=== PATIENT | female | born 1955 | race Caucasian/White ===

== ENCOUNTER 2016-09-19 10:29 | Emergency (ER) | payer OTHER ==
[~2016-09-19] VITALS: Ht 162.6 cm; Wt 79.5 kg
[~2016-09-19 10:29] MED LIST: ACET-1138 PO; AMT50 PO; ASCO500T16 PO; ASPEC81 PO; CALC500C70 PO; CLB/200 PO; MIRT15TA3 PO; MULT-506 PO; NXM/40 PO; RXC5 PO; SERT-234 PO; SNK PO
[2016-09-19 10:38] VITALS: TEMP 36.6; Ht 162.6 cm; Wt 79.5 kg
[2016-09-19] MEDS ORDERED: SODIUM CHLORIDE 0.9% 1000ML 1,000 ML IV STA (11:11)
[2016-09-19] MEDS ORDERED: ONDANSETRON INJ 2 MG/ML 2 ML VIAL IV STA (11:11)
[2016-09-19 11:46] LABS: BASO % 0.1 %; BASO ABS # 0.01 K/uL (0-0.2); COMPLETE YES; EOS % 0.4 %; HEMATOCRIT 40.2 % (37-47); IG% 0.2 %; LYMPH ABS # 0.43 K/uL (1.2-3.4); MEAN CELL VOLUME 83.8 fL (80-100); MEAN CORPUSCULAR HEMOGLOBIN 28.1 pg (25-34); MEAN CORPUSCULAR HGB CONC 33.6 g/dl (32-36); MEAN PLATELET VOLUME 9.5 fL (7.4-10.4); MONO % 2.6 %; NEUT % 93.7 %; PLATELET COUNT 316 K/uL (130-400); WHITE BLOOD COUNT 14.37 K/uL (4.8-10.8)
[2016-09-19] MEDS ORDERED: ACETAMINOPHEN 500 MG TAB PO STA (11:56)
--- NOTE | 2016-09-19 12:00 | EMERGENCY ROOM VISIT NOTE ---
History Report prepared by Adryanibtricia: Charlotte Irene Under the Supervision of: Dr. Yariel Caro M.D. First contact with patient: 11:00 Chief Complaint: VOMITING Stated Complaint: VOMITING, DIARRHEA Nursing Triage Summary: Vomiting since 5am today. Now with diarrhea. Achy, headache. History of Present Illness The patient is a 61 year old female who presents to the Emergency Room with complaints of persistent vomiting and diarrhea that started around 0500 this morning. She also complains of diaphoresis, chills and a headache. She denies any recent sick contacts. The Zofran she was given here in the ED has provided good relief of her nausea and she has not vomited since she arrived to the ED. She reports she ate a salad, frozen fish and salcedo beans last night for dinner, but doesn't think she got food poisoning. She admits to intermittent aches in her abdomen and legs, but states "I think it's a flu-like ache". She still has both her appendix and gallbladder. Source of History: patient Onset: 0500 this morning Position: abdomen Timing: other (persistent) Modifying Factors (Relieving): anti-emetics (Zofran) Associated Symptoms: + abdominal pain, + chills, + diaphoresis, + headache Review of Systems See HPI for pertinent positives & negatives. A total of 10 systems reviewed and were otherwise negative. Past Medical & Surgical Medical Problems: (1) Arthritis (2) COPD (chronic obstructive pulmonary disease) (3) GERD (gastroesophageal reflux disease) (4) Osteoarthritis of right knee (5) Personal History, Pneumonia (Recurrent) Family History Cancer Social History Smoking Status: Former Smoker Marital Status: Housing Status: lives with family Occupation Status: employed Current/Historical Medications Scheduled Ascorbic Acid (Ascorbic Acid), 2,000 MG PO QAM Calcium/Vitamin D (Os-Gregorio 500 Plus D), 1 TAB PO DAILY Celecoxib (CeleBREX), 200 MG PO QAM Esomeprazole Magnesium (Nexium), 40 MG PO BID Multivitamin (Multivitamin), 1-2 TAB PO QPM Ondasetron Odt (Zofran Odt), 4 MG SL Q6H Scheduled PRN Amitriptyline Hcl (Elavil), 50-100 MG PO HS PRN for RN Mirtazapine (Remeron), 15-30 MG PO HS PRN for Sleep Oxycodone HCl (Oxycodone HCl), 5-10 MG PO Q4H PRN for Pain Allergies Coded Allergies: Clarithromycin (Verified Allergy, Mild, HIVES RASH WITH BIAXIN, 08/27/16) Cyclobenzaprine (Verified Allergy, Unknown, RASH, 08/27/16) Ibuprofen (Verified Adverse Reaction, Mild, bad heartburn with large doses , 08/27/16) Physical Exam Vital Signs Date Time Temp Pulse Resp B/P Pulse Ox O2 Delivery O2 Flow Rate FiO2 09/19/16 12:56 107 18 124/80 97 09/19/16 12:03 109 17 128/87 96 Room Air 09/19/16 10:38 36.6 122 19 105/75 98 Room Air Physical Exam GENERAL: Patient is a healthy-appearing well-nourished HEAD: Normocephalic atraumatic EYES: Ocular movements intact pupils equal and react to light OROPHARYNX mucous membranes are moist no exudates present no erythema or edema present NECK: Supple no nuchal rigidity CHEST: Good equal expansion LUNGS: Clear and equal to auscultation CARDIAC: Normal S1 and S2 ABDOMEN: Soft nontender no guarding BACK: No CVA tenderness EXTREMITIES: No pain upon palpation normal muscle strength in all groups no clubbing cyanosis or edema NEURO: Patient is following commands is answering questions appropriately. Alert and oriented x3 Cranial Nerves 2-12 grossly intact Medical Decision & Procedures Laboratory Results 09/19/16 11:19 Red Blood Count 4.80, Mean Corpuscular Volume 83.8, Mean Corpuscular Hemoglobin 28.1, Mean Corpuscular Hemoglobin Concent 33.6, Mean Platelet Volume 9.5, Neutrophils (%) (Auto) 93.7, Lymphocytes (%) (Auto) 3.0, Monocytes (%) (Auto) 2.6, Eosinophils (%) (Auto) 0.4, Basophils (%) (Auto) 0.1, Neutrophils # (Auto) 13.47, Lymphocytes # (Auto) 0.43, Monocytes # (Auto) 0.37, Eosinophils # (Auto) 0.06, Basophils # (Auto) 0.01 09/19/16 11:19 Test 09/19/16 11:19 09/19/16 12:05 White Blood Count 14.37 K/uL (4.8-10.8) Red Blood Count 4.80 M/uL (4.2-5.4) Hemoglobin 13.5 g/dL (12.0-16.0) Hematocrit 40.2 % (37-47) Mean Corpuscular Volume 83.8 fL (80-100) Mean Corpuscular Hemoglobin 28.1 pg (25-34) Mean Corpuscular Hemoglobin Concent 33.6 g/dl (32-36) Platelet Count 316 K/uL (130-400) Mean Platelet Volume 9.5 fL (7.4-10.4) Neutrophils (%) (Auto) 93.7 % Lymphocytes (%) (Auto) 3.0 % Monocytes (%) (Auto) 2.6 % Eosinophils (%) (Auto) 0.4 % Basophils (%) (Auto) 0.1 % Neutrophils # (Auto) 13.47 K/uL (1.4-6.5) Lymphocytes # (Auto) 0.43 K/uL (1.2-3.4) Monocytes # (Auto) 0.37 K/uL (0.11-0.59) Eosinophils # (Auto) 0.06 K/uL (0-0.5) Basophils # (Auto) 0.01 K/uL (0-0.2) RDW Standard Deviation 42.3 fL (36.4-46.3) RDW Coefficient of Variation 13.8 % (11.5-14.5) Immature Granulocyte % (Auto) 0.2 % Immature Granulocyte # (Auto) 0.03 K/uL (0.00-0.02) Anion Gap 12.0 mmol/L (3-11) Est Creatinine Clear Calc Drug Dose 80.5 ml/min Estimated GFR () 101.6 Estimated GFR (Non- 87.7 BUN/Creatinine Ratio 24.8 (10-20) Calcium Level 8.8 mg/dl (8.5-10.1) Total Bilirubin 0.4 mg/dl (0.2-1) Direct Bilirubin < 0.1 mg/dl (0-0.2) Aspartate Amino Transf (AST/SGOT) 13 U/L (15-37) Alanine Aminotransferase (ALT/SGPT) 27 U/L (12-78) Alkaline Phosphatase 95 U/L (45-117) Total Protein 7.9 gm/dl (6.4-8.2) Albumin 4.4 gm/dl (3.4-5.0) Lipase 174 U/L (73-393) Urine Color YELLOW Urine Appearance CLEAR (CLEAR) Urine pH 5.0 (4.5-7.5) Urine Specific [place] 1.019 (1.000-1.030) Urine Protein NEG (NEG) Urine Glucose (UA) NEG (NEG) Urine Ketones NEG (NEG) Urine Occult Blood NEG (NEG) Urine Nitrite NEG (NEG) Urine Bilirubin NEG (NEG) Urine Urobilinogen NEG (NEG) Urine Leukocyte Esterase NEG (NEG) Labs reviewed by ED physician. Medications Administered Medications (Trade) Dose Ordered Sig/Willian Route Start Time Stop Time Status Last Admin Dose Admin Sodium Chloride (Nss 1000ml) 1,000 ml @ 999 mls/hr Q1H1M STAT IV 09/19/16 11:11 09/19/16 12:11 DC 09/19/16 11:11 999 MLS/HR Ondansetron HCl (Zofran Inj) 4 mg NOW STAT IV 09/19/16 11:11 09/19/16 11:12 DC 09/19/16 11:22 4 MG Acetaminophen (Tylenol Tab) 1,000 mg NOW STAT PO 09/19/16 11:56 09/19/16 11:57 DC 09/19/16 12:02 1,000 MG Ondansetron HCl (ZOFRAN ODT 4MG Home Pack) 1 homepack UD ONCE PO 09/19/16 12:45 09/19/16 12:46 DC 09/19/16 12:46 1 HOMEPACK ED Course 1111: Zofran 4 mg IV, NSS 1000 ml @ 999 mls/hr IV. 1145: Past medical records reviewed. The patient was evaluated in room C9. A complete history and physical examination was performed. 1156: Acetaminophen 1000 mg PO. 1245: Zofran 4 mg 1 home pack PO. 1255: I reevaluated the patient. She is feeling much better. I discussed her results and discharge instructions and she verbalized complete understanding and agreement. Medical Decision Prior records/ancillary studies reviewed. Triage Nursing notes reviewed. The patient's history was concerning for nausea, vomiting, diarrhea, and abdominal pain. Differential diagnosis: Etiologies such as gastroenteritis, food borne illness, infections, appendicitis , diverticulitis, inflammatory bowel disease, obstruction, GI bleed, biliary pathology, as well as others were entertained. This is a 61-year-old female who presents emergency department complaining of gastroenteritis-like symptoms. Serial abdominal examinations were performed on the patient in the emergency department and at no time did she exhibit abdominal tenderness or surgical abdomen. Based on these findings I felt that the patient did not require CAT scan of the abdomen and pelvis. She does have a slight elevation in her white blood count which I feel is from vomiting. She was given normal saline bolus as well as tylenol and Zofran. Repeat examination revealed improvement in the patient's symptoms. I believe the patient as well as to be discharged home. Patient was in agreement with the treatment plan. Impression Primary Impression: Gastroenteritis Scribe Attestation The scribe's documentation has been prepared under my direction and personally reviewed by me in its entirety. I confirm that the note above accurately reflects all work, treatment, procedures, and medical decision making performed by me. Departure Information Dispostion Home / Self-Care Prescriptions Ondasetron Odt (ZOFRAN ODT) 4 Mg Tab 4 MG SL Q6H for Nausea, #6 TAB Prov: Yariel Caro MD 09/19/16 Referrals Ag Florence M.D.(LYLE) (PCP) Patient Instructions A Signature Page, ED Diet Vomiting Diarrhea, ED Gastroenteritis Vs Food Poison, My [facility] Additional Instructions You have been examined and treated today on an emergency basis only. This is not a substitute for, or an effort to provide, complete comprehensive medical care. It is impossible to recognize and treat all injuries or illnesses in a single emergency department visit. It is therefore important that you follow up closely with Dr Florence. Call as soon as possible for an appointment. Thank you for your time and consideration. I look forward to speaking with you again soon. Please don't hesitate to call us if you have any questions.
[2016-09-19 12:07] LABS: ALT/SGPT 27 U/L (12-78); AST/SGOT 13 U/L (15-37); BLOOD UREA NITROGEN 18 mg/dl (7-18); BUN/CREATININE RATIO 24.8 (10-20); CALCIUM 8.8 mg/dl (8.5-10.1); CARBON DIOXIDE 22 mmol/L (21-32); CHLORIDE 106 mmol/L (98-107); CREATININE 0.73 mg/dl (0.60-1.20); GLUCOSE 128 mg/dl (70-99); POTASSIUM 4.1 mmol/L (3.5-5.1); SODIUM 140 mmol/L (136-145)
[2016-09-19 12:10] LABS: ALKALINE PHOSPHATASE 95 U/L (45-117)
[2016-09-19 12:32] LABS: URINE APPEARANCE CLEAR (CLEAR); URINE BILIRUBIN NEG (NEG); URINE COLOR YELLOW; URINE NITRITE NEG (NEG); URINE SPECIFIC GRAVITY 1.019 (1.000-1.030); UROBILINOGEN NEG (NEG)
[2016-09-19 12:34] LABS: MANUAL MICROSCOPIC REQUIRED? NO; REVIEW REQ? NO
[2016-09-19] MEDS ORDERED: ONDA4TAB10 SL (12:41)
[2016-09-19] MEDS ORDERED: ONDANSETRON HOME PACK 4MG OD TAB PO ONE (12:45)
[2016-09-19 12:56] VITALS: BP 124/80; PULSE 107; O2SAT 97
== END 2016-09-19 12:58 | disposition home or self-care (01) ==
LOC: C.EDB 10:30 → C.EDC 12:58
DX: K52.9 Noninfective gastroenteritis and colitis, unspecified (principal); M19.90 Unspecified osteoarthritis, unspecified site; J44.9 Chronic obstructive pulmonary disease, unspecified; K21.9 Gastro-esophageal reflux disease without esophagitis; Z87.891 Personal history of nicotine dependence; Z79.899 Other long term (current) drug therapy